=== PATIENT | female | born 1950 | race Caucasian/White ===

== ENCOUNTER → 2017-01-30 16:24 | Outpatient (CLI) | payer MEDICARE, OTHER ==
[2012-06-11 07:57] VITALS: BMI 20.5
== END | disposition home or self-care (01) ==
LOC: D.MAMMO 10:30
DX: Z85.3 Personal history of malignant neoplasm of breast (principal)

== ENCOUNTER → 2017-03-24 08:15 | Outpatient (CLI) | payer MEDICARE, OTHER ==
[2012-06-11 07:57] VITALS: BMI 20.5
== END | disposition home or self-care (01) ==
LOC: D.CT 08:15
DX: J42 Unspecified chronic bronchitis (principal)

== ENCOUNTER → 2018-02-07 10:19 | Outpatient (CLI) | payer MEDICARE, OTHER ==
[2012-06-11 07:57] VITALS: BMI 20.5
== END | disposition home or self-care (01) ==
LOC: D.MRI 10:19
DX: M86.60 Other chronic osteomyelitis, unspecified site (principal)